=== PATIENT | male | born 2000 | race Caucasian/White ===

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

== ENCOUNTER 2019-11-20 19:56 | Emergency (ER) | payer BC, OTHER ==
[2019-11-20 20:03] VITALS: BP 138/77
[2019-11-20] MEDS ORDERED: DEXAMETHASONE 10 MG/ML VIAL PO STA (20:17)
[2019-11-20] MEDS ORDERED: ALBUTEROL NEB 2.5 MG/3 ML INH STA (20:17)
[2019-11-20] MEDS ORDERED: CHERRY SYRUP 10 ML UDC PO ONE (20:17)
--- NOTE | 2019-11-20 20:21 | ED Physician Documentation ---
History of Present Illness - Stated complaint Stated Complaint: SOA - Chief complaint Chief Complaint: Allergic Rx - History obtained from History obtained from: Patient - History of Present Illness Timing: Today Pain level max: 0 Pain level now: 0 - Additonal information Additional information: 19-year-old male states that he was bleaching his friend's hair when he began to feel like his chest was tightening and then he was having a hard time breathing. Nothing makes it better or worse. He states that he feels better than he did originally, but still feels like his chest is tight. Review of Systems Constitutional: denies: Fever, Chills GI: denies: Vomiting, Diarrhea Skin: denies: Rash Musculoskeletal: denies: Neck pain, Back pain Neurologic: denies: Headache PD PAST MEDICAL HISTORY - Past Medical History Past Medical History: Yes Psych: Anxiety - Past Surgical History Past Surgical History: No - Allergies Allergies/Adverse Reactions: Allergies Allergy/AdvReac Type Severity Reaction Status Date / Time No Known Drug Allergies Allergy Verified 11/20/19 19:58 - Social History Does the pt smoke?: No Smoking Status: Never smoker - Immunizations Immunizations are current?: Yes - POLST Patient has POLST: No PD ED PE NORMAL - Vitals Vital signs reviewed: Yes - General General: Alert and oriented X 3, No acute distress - HEENT HEENT: Moist mucous membranes, Pharynx benign - Neck Neck: Supple, no meningeal sign - Cardiac Cardiac: RRR - Respiratory Respiratory: No respiratory distress, Other (Minimal wheeze bilaterally. No stridor. No respiratory distress) - Abdomen Abdomen: Soft, Non tender, Non distended - Derm Derm: Warm and dry, No rash - Extremities Extremities: No edema - Neuro Neuro: Alert and oriented X 3 Results - Vitals Vitals: Vital Signs - 24 hr 11/20/19 11/20/19 19:58 20:29 Temperature 36.5 C Heart Rate 108 H 91 Respiratory 16 16 Rate Blood Pressure 138/77 H O2 Saturation 98 Oxygen O2 Source Room air PD MEDICAL DECISION MAKING - ED course Complexity details: reviewed results, re-evaluated patient, considered differential, d/w patient ED course: Symptoms resolved with albuterol and dexamethasone. Appears to be a chemical inhalation exposure. Patient is well-appearing, nontoxic. No hypoxia. No respiratory distress. Patient counseled regarding signs and symptoms for which I believe and urgent re-evaluation would be necessary. Patient with good understanding of and agreement to plan and is comfortable going home at this time This document was made in part using voice recognition software. While efforts are made to proofread this document, sound alike and grammatical errors may occur. Departure - Departure Disposition: 01 Home, Self Care Clinical Impression: Toxic effect of bleach Qualifiers: Encounter type: initial encounter Injury intent: accidental or unintentional Qualified Code(s): T54.91XA - Toxic effect of unspecified corrosive substance, accidental (unintentional), initial encounter Condition: Good Instructions: ED Inhalation Chemical Follow-Up: your,doctor as needed. [Other] Comments: This should continue to improve at home. Return if you worsen. Discharge Date/Time: 11/20/19 20:36
== END 2019-11-20 20:36 | disposition home or self-care (01) ==
LOC: ED 19:56
DX: T54.91XA Toxic effect of unspecified corrosive substance, accidental (unintentional), initial encounter (principal); R07.89 Other chest pain; R06.00 Dyspnea, unspecified
CPT/HCPCS: 94640; 99283; 99284; A9270

== ENCOUNTER 2020-01-27 15:10 | Emergency (ER) | payer BC ==
[2020-01-27 15:17] VITALS: BP 117/71
[2020-01-27] MEDS ORDERED: LIDOCAINE 1% 2 ML VIAL SUBQ STA (15:33)
[2020-01-27] MEDS ORDERED: BACITRACIN ZINC OINT 1 PACKET TOP STA (15:43)
--- NOTE | 2020-01-27 15:46 | ED Physician Documentation ---
PD HPI LOWER EXT INJURY - Stated complaint Stated Complaint: LT KNEE LAC - Chief complaint Chief Complaint: Laceration - History obtained from History obtained from: Patient - History of Present Illness PD HPI LOW EXT INJURY LOCATION: Left, Knee Type of injury: Laceration Where injury occurred: Home Timing - onset: How many hours ago (1) Timing - duration: Hours (1) Timing - details: Abrupt onset Pain level max: 2 Pain level now: 1 Improved by: Rest Worsened by: Moving, Palpating Associated symptoms: No: Weakness, Numbness, Tingling, Swelling Contributing factors: No: Anticoagulated Recently seen: Not recently seen - Additional information Additional information: Moving a refrigerator upstairs when it hit his knee causing the laceration. Review of Systems Neurologic: denies: Head injury PD PAST MEDICAL HISTORY - Past Medical History Past Medical History: Yes Psych: Anxiety - Past Surgical History Past Surgical History: No - Present Medications Home Medications: Ambulatory Orders Medication Instructions Recorded Confirmed No Known Home Medications 01/27/20 01/27/20 - Allergies Allergies/Adverse Reactions: Allergies Allergy/AdvReac Type Severity Reaction Status Date / Time No Known Drug Allergies Allergy Verified 01/27/20 15:17 - Social History Does the pt smoke?: No Smoking Status: Never smoker - Immunizations Immunizations are current?: Yes Immunizations: TDAP current <10years - POLST Patient has POLST: No PD ED PE NORMAL - Vitals Vital signs reviewed: Yes - General General: Alert and oriented X 3, No acute distress - HEENT HEENT: Moist mucous membranes - Neck Neck: Supple, no meningeal sign - Derm Derm: Warm and dry - Extremities Extremities: Other (Left knee - 2 cm laceration, linear to the distal left thigh, anterior aspect. Subcutaneous.) - Neuro Neuro: Alert and oriented X 3 - Psych Psych: Normal mood, Normal affect Results - Vitals Vitals: Vital Signs - 24 hr 01/27/20 15:15 Temperature 37 C Heart Rate 111 H Respiratory 18 Rate Blood Pressure 117/71 O2 Saturation 99 Oxygen O2 Source Room air Procedures - Laceration (location) Left knee laceration Length in cm: 2 Wound type: Linear, Into subcut fat, Clean Neurovascular status: Sensory intact, Motor intact, Vascular intact Tendon involvement: Tendon intact. No: Tendon Injury Anesthesia: Lidocaine 1% Wound Preparation: Irrigated copiously NS, Wound explored, To the base Skin layer closure: Yanet Other: Patient tolerated well, No complications, Neurovascular intact, Dressing applied, Tetanus UTD Complexity: Simple PD MEDICAL DECISION MAKING - ED course Complexity details: considered differential, d/w patient ED course: Warnings of infection and instructions on wound care given at bedside. Also counseled on how to minimize scarring. Patient counseled regarding signs and symptoms for which I believe and urgent re-evaluation would be necessary. Patient with good understanding of and agreement to plan and is comfortable going home at this time This document was made in part using voice recognition software. While efforts are made to proofread this document, sound alike and grammatical errors may occur. Departure - Departure Disposition: 01 Home, Self Care Clinical Impression: Laceration of knee Qualifiers: Encounter type: initial encounter Laterality: left Qualified Code(s): S81.012A - Laceration without foreign body, left knee, initial encounter Condition: Good Instructions: ED Laceration Ext Sutr Stap Tape Follow-Up: your,doctor in 10-14 days for staple removal [Other] Comments: The yanet should be removed in 10 to 14 days with your doctor. Return if you worsen. Return if you notice redness, swelling or drainage from the wound.
== END 2020-01-27 15:56 | disposition home or self-care (01) ==
LOC: ED 15:10
DX: S81.012A Laceration without foreign body, left knee, initial encounter (principal); W26.8XXA Contact with other sharp object(s), not elsewhere classified, initial encounter; Y93.89 Activity, other specified; Y92.008 Other place in unspecified non-institutional (private) residence as the place of occurrence of the external cause
CPT/HCPCS: 12001; 99282

== ENCOUNTER 2020-01-29 02:20 | Emergency (ER) | payer BC ==
[2020-01-29 02:29] VITALS: BP 131/80
--- NOTE | 2020-01-29 02:30 | ED Physician Documentation ---
PD HPI HEENT - Stated complaint Stated Complaint: JAW TIGHTNESS - Chief complaint Chief Complaint: Heent - History obtained from History obtained from: Patient (the patient is a 19 y/o m who had yanet to repair a left knee lac 2 days ago, he states his tetanus is not up to date and is requesting a tetanus shot. c/o of mild jaw discomfort. denies any other complaints.) Review of Systems Ten Systems: 10 systems reviewed and negative Constitutional: reports: Reviewed and negative Eyes: reports: Reviewed and negative Ears: reports: Reviewed and negative Nose: reports: Reviewed and negative Throat: reports: Reviewed and negative Cardiac: reports: Reviewed and negative Respiratory: reports: Reviewed and negative GI: reports: Reviewed and negative : reports: Reviewed and negative Skin: reports: Reviewed and negative Musculoskeletal: reports: Reviewed and negative Neurologic: reports: Reviewed and negative Psychiatric: reports: Reviewed and negative Endocrine: reports: Reviewed and negative Immunocompromised: reports: Reviewed and negative PD PAST MEDICAL HISTORY - Past Medical History Past Medical History: Yes Cardiovascular: None Respiratory: None Neuro: None Endocrine/Autoimmune: None GI: None : None HEENT: None Psych: Anxiety Musculoskeletal: None Derm: None - Past Surgical History Past Surgical History: No - Present Medications Home Medications: Ambulatory Orders Medication Instructions Recorded Confirmed No Known Home Medications 01/27/20 01/27/20 - Allergies Allergies/Adverse Reactions: Allergies Allergy/AdvReac Type Severity Reaction Status Date / Time No Known Drug Allergies Allergy Verified 01/29/20 02:28 - Social History Does the pt smoke?: No Smoking Status: Never smoker Does the pt drink ETOH?: No Does the pt have substance abuse?: No - Immunizations Immunizations are current?: Yes Immunizations: TDAP current <10years - POLST Patient has POLST: No PD ED PE NORMAL - Vitals Vital signs reviewed: Yes - General General: Alert and oriented X 3, No acute distress, Well developed/nourished - HEENT HEENT: Atraumatic, PERRL, Ears normal, Moist mucous membranes, Pharynx benign, Dentition benign, Other (Full range of motion of the jaw there is no tenderness over the mandible there is no decreased range of motion there is No rigidity of the mouth, neck, mandible or face) - Neck Neck: Supple, no meningeal sign, No adenopathy, No JVD - Cardiac Cardiac: RRR, No murmur, Strong equal pulses - Respiratory Respiratory: No respiratory distress, Clear bilaterally - Abdomen Abdomen: Normal bowel sounds, Soft, Non tender, Non distended, No organomegaly - Male Male : Deferred, Photo Finisher present - Derm Derm: Normal color, Warm and dry, No rash - Extremities Extremities: No deformity, No tenderness to palpate, Normal ROM s pain, No edema, No calf tenderness / cord, Other (Left knee laceration with yanet in place, no signs of infection.) - Neuro Neuro: Alert and oriented X 3, dietitian chief 2-12 intact, No motor deficit, No sensory deficit, Normal speech - Psych Psych: Normal mood, Normal affect Results - Vitals Vitals: Vital Signs - 24 hr 01/29/20 02:27 Temperature 36.5 C Heart Rate 114 H Respiratory 16 Rate Blood Pressure 131/80 H O2 Saturation 99 Oxygen O2 Source Room air PD MEDICAL DECISION MAKING - ED course Complexity details: considered differential (tetanus not up to date per patient, will up date tetanus. ) Departure - Departure Disposition: 01 Home, Self Care Clinical Impression: Visit for wound check Condition: Stable Instructions: ED Laceration Scalp Stitch Or Stap Follow-Up: your, doctor [Other] Comments: follow up in 10-12 days for yanet removal
[2020-01-29] MEDS ORDERED: TETANUS/DIPHTHERIA/PERTUSSIS 0.5 ML SYRINGE IM ONE (02:38)
== END 2020-01-29 02:50 | disposition home or self-care (01) ==
LOC: ED 02:20
DX: Z76.89 Persons encountering health services in other specified circumstances (principal); S81.012D Laceration without foreign body, left knee, subsequent encounter
CPT/HCPCS: 90471; 99282; 99283

== ENCOUNTER 2020-02-10 08:26 | Emergency (ER) | payer BC ==
--- NOTE | 2020-02-10 08:33 | ED Physician Documentation ---
PD HPI WOUND RECHECK - Stated complaint Stated Complaint: STAPLE REM - Histroy obtained from History obtained from: Patient - History of Present Illness Location: Left Lower Extremity (Suprapatellar area with well-healing wound with slight redness around the staple inserts. No purulence. The wound itself is well adherent and seems close. The yanet have been in there for 13 days.) Timing - onset: How many days ago (13) Associated symptoms: Redness (slight at staple inserts the past couple of days). No: Fever, Swelling, Drainage Recently seen: Emergency Dept (13 days ago) Review of Systems Constitutional: denies: Fever, Chills Skin: denies: Rash PD PAST MEDICAL HISTORY - Past Medical History Cardiovascular: None Respiratory: None Neuro: None Endocrine/Autoimmune: None GI: None : None HEENT: None Psych: Anxiety Musculoskeletal: None Derm: None - Past Surgical History Past Surgical History: No - Present Medications Home Medications: Ambulatory Orders Medication Instructions Recorded Confirmed No Known Home Medications 01/27/20 01/27/20 - Allergies Allergies/Adverse Reactions: Allergies Allergy/AdvReac Type Severity Reaction Status Date / Time No Known Drug Allergies Allergy Verified 02/10/20 08:38 - Social History Does the pt smoke?: No Smoking Status: Never smoker Does the pt drink ETOH?: No Does the pt have substance abuse?: No - Immunizations Immunizations are current?: Yes Immunizations: TDAP current <10years - POLST Patient has POLST: No PD ED PE NORMAL - Vitals Vital signs reviewed: Yes - General General: Alert and oriented X 3, No acute distress, Well developed/nourished - Derm Derm: Normal color, Warm and dry - Extremities Extremities: Other (Left knee shows a well-healing wound with several yanet in place. There is a mild circular redness at a couple of the staple points. No general redness and no purulence. The wound line itself is well adherent and without any signs of infection. Good range of motion of the knee.) - Neuro Neuro: Alert and oriented X 3, No motor deficit, No sensory deficit, Normal speech Results - Vitals Vitals: Vital Signs - 24 hr 02/10/20 08:34 Temperature 36.8 C Heart Rate 94 Respiratory 16 Rate Blood Pressure 124/80 O2 Saturation 99 Oxygen O2 Source Room air PD MEDICAL DECISION MAKING - ED course Complexity details: considered differential (Yanet removed without problems, by me. ), d/w patient Departure - Departure Disposition: 01 Home, Self Care Clinical Impression: Encounter for removal of yanet Condition: Stable Record reviewed to determine appropriate education?: Yes Instructions: ED Stap Removal No Complication
[2020-02-10 08:38] VITALS: BP 124/80
[2020-02-10] MEDS ORDERED: BACITRACIN ZINC OINT 1 PACKET TOP STA (08:57)
== END 2020-02-10 09:09 | disposition home or self-care (01) ==
LOC: ED 08:26
DX: S89.82XD Other specified injuries of left lower leg, subsequent encounter (principal); Z48.02 Encounter for removal of sutures
CPT/HCPCS: 99282; 99283; A9270